=== PATIENT | male | born 1965 | race Caucasian/White ===

== ENCOUNTER 2018-01-25 18:12 | Emergency (ER) | payer OTHER, SELFPAY ==
[2018-01-25 18:14] VITALS: BP 166/82; PULSE 114; RESP 18; TEMP 36.4; O2SAT 98; BMI 26.4
--- NOTE | 2018-01-25 18:42 | ED.VISSUMM ---
- ER Visit Summary Date of Service: 01/25/18 Chief Complaint: [Dog bite left hand] History of Present Illness: The patient is a 52 M [presents the emergency department with a dog bite sustained 2 days ago. Patient states that he got between his 2 dogs that were fighting. Patient is left-hand dominant. Patient states that yesterday he had ice on his hand and the swelling stayed down but today noticed increased swelling as he can keep ice on his left hand very much throughout the day. Patient denies any fever. Patient unsure of his last tetanus. His dogs are immunized.] Physical Examination: [Left hand-patient has a puncture wound to the dorsum of the left hand over the proximal portion of the hand overlying the area of the extensor tendon to the index finger patient also has a puncture wound in the webspace between the thumb and index finger. Patient has normal extension and flexion of all digits. He is neurovascular intact. No cellulitis noted. Patient does have soft tissue swelling and edema of the hand.] Test Results: [None indicated] Emergency Department Course and Treatment: [Patient had clean dressing applied and he was started on Cipro and clindamycin given that he is pen allergic.] Treatment Plan: [Patient will be referred to Dr. Baugh for follow-up in 3-5 days. Patient understands that we will not be suturing the wounds as they are 2 days old and small.] Disposition: [Discharged home in stable condition. Patient advised to return if increasing pain, redness, swelling, or condition should worsen in any way.] Impression: [Dog bite left hand] This note was generated with [employer] dictation software. It may contain incorrect words, spelling, and punctuation that were not noted in review of the chart prior to signing ED Disposition - Plan for ED Patient: Chief Complaint: Bite Referrals: Francisco Prasad MD [Primary Care Provider] -
--- NOTE | 2018-01-25 18:45 | ED.DCSUM_ITS ---
- ER Visit Summary Date of Service: 01/25/18 Chief Complaint: [Dog bite left hand] History of Present Illness: The patient is a 52 M [presents the emergency department with a dog bite sustained 2 days ago. Patient states that he got between his 2 dogs that were fighting. Patient is left-hand dominant. Patient states that yesterday he had ice on his hand and the swelling stayed down but today noticed increased swelling as he can keep ice on his left hand very much throughout the day. Patient denies any fever. Patient unsure of his last tetanus. His dogs are immunized.] Physical Examination: [Left hand-patient has a puncture wound to the dorsum of the left hand over the proximal portion of the hand overlying the area of the extensor tendon to the index finger patient also has a puncture wound in the webspace between the thumb and index finger. Patient has normal extension and flexion of all digits. He is neurovascular intact. No cellulitis noted. Patient does have soft tissue swelling and edema of the hand.] Test Results: [None indicated] Emergency Department Course and Treatment: [Patient had clean dressing applied and he was started on Cipro and clindamycin given that he is pen allergic.] Treatment Plan: [Patient will be referred to Dr. Baugh for follow-up in 3- 5 days. Patient understands that we will not be suturing the wounds as they are 2 days old and small.] Disposition: [Discharged home in stable condition. Patient advised to return if increasing pain, redness, swelling, or condition should worsen in any way.] Impression: [Dog bite left hand] This note was generated with [employer] dictation software. It may contain incorrect words, spelling, and punctuation that were not noted in review of the chart prior to signing ED Disposition - Plan for ED Patient: Chief Complaint: Bite Referrals: Francisco Prasad MD [Primary Care Provider] -
--- NOTE | 2018-01-25 18:45 | ED.DEP ---
ED Disposition - Plan for ED Patient: Chief Complaint: Bite Instructions: ED Bite Dog Prescriptions: Ciprofloxacin [Cipro] 500 mg PO BID #20 tab Clindamycin HCl [Cleocin] 300 mg PO Q6H #40 cap Referrals: Francisco Prasad MD [Primary Care Provider] - Susi Baugh DO [STAFF PHYSICIAN] - 3-5 Days
[2018-01-25] MEDS: Ciprofloxacin 500 MG Tablet PO (18:50)
[2018-01-25] MEDS: Clindamycin HCl 150 MG Capsule 300 MG PO (18:50)
[2018-01-25] MEDS: Diphth,Pertuss(Acell),Tet Vac 0.5 ML Vial IM (18:51)
== END 2018-01-25 19:25 | disposition home or self-care (01) ==
LOC: ED 19:06
PROVIDERS: Emergency Provider Emergency Medicine; Family Provider Physician Assistant; PCP Physician Assistant
DX: S61.432A Puncture wound without foreign body of left hand, initial encounter (principal); W54.0XXA Bitten by dog, initial encounter; Y93.89 Activity, other specified; Y92.9 Unspecified place or not applicable
CPT/HCPCS: 90715; 99282; A4216

== ENCOUNTER 2018-02-05 11:30 | Outpatient (RCR) | payer OTHER, SELFPAY ==
--- NOTE | 2018-01-30 12:01 | HP.OTEVAL ---
Patient's Visit Information LEAH MEDEL is a 52 year old M, referred to Occupational Therapy by Susi Baugh DO, with a diagnosis of left handed dog bit /infection. Date of Evaluation: 01/30/18 Occupational Therapist: WAI Gutierrez/Tray, CHT - Subjective Subjective: Pt attends OT session this date with dx of dog bite of left hand- pt states a week ago he was bit by his dog- states his hand is getting better but continues to struggle with pain, edema and limited ROM. 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 Pt was ed. on signs and symptoms of infection, as well as cleaning his wound- keeping it open to drain. pt will be seen 1-2xweek for 4 weeks to ensure pt returns to PLOF. Rehabilitation Potential: Excellent - Anticipated Interventions Anticipated Interventions: A/AAROM/PROM, Edema Control, Scar Care, Wound Care, Modalities, Orthoses, Fine Motor Coord/Silvino, Home Program - Visit Plan Frequency: 1-2x /Week Duration: 4 Weeks TEXT: Thank you for the opportunity to evaluate your patient. For Medicare and Medicare HMO plans, please review the plan of care and approve it. It will need to be FAXED BACK to us at [phone] for Medicare purposes. Please let me know if there are questions or concerns regarding this plan of care. Physician Signature: Date:
--- NOTE | 2018-02-06 10:35 | HP.OT.NRP ---
HP - Discharge Summary - Patient Information LEAH MEDEL was seen in my office for initial evaluation on 01/30/18. The following Plan of Care was established for this patient: Initial Frequency: 1-2x /Week Initial Duration: 4 Weeks Plan: pt to see 02-06-18 - Anticipated Interventions Anticipated Interventions: A/AAROM/PROM, Edema Control, Scar Care, Wound Care, Modalities, Orthoses, Fine Motor Coord/Silvino, Home Program This patient was last seen in our office 02/05/18. Pertinent comments regarding their Occupational therapy will appear below: pt let therapist know he went to the and she has released him from therapy. PT D/C meeting functional goals. At this point I will be discontinuing this patient from occupational therapy. I would be happy to see this patient again in the future if found appropriate by the physician. Thank you! Mariana Dorantes, OTR/L, CHT
== END 2018-02-05 19:00 | disposition home or self-care (01) ==
LOC: OT 11:30
PROVIDERS: Family Provider Physician Assistant; PCP Physician Assistant; Visit Provider Orthopaedic Surgery
DX: S61.452D Open bite of left hand, subsequent encounter (principal); W54.0XXD Bitten by dog, subsequent encounter
CPT/HCPCS: 97166; 97530

== ENCOUNTER → 2024-12-01 | Outpatient (CLI) | payer OTHER, SELFPAY ==
[2024-12-01 10:23] LABS: Absolute Lymphocyte Count 2.76 X10^3/uL (0.83-4.51); Absolute Neutrophil Count 3.9 X10^3/uL (2.0-7.7); Basophil# 0.06 X10^3/uL; Basophil% 0.8 % (0-1); Eosinophil# 0.49 X10^3/uL; Eosinophils% 6.3 % (0-5); Hematocrit 46.5 % (40-54); Hemoglobin 15.7 g/dL (13.0-16.5); Lymphocyte # 2.76 X10^3/ul (0.83-4.51); Lymphocyte % 35.5 % (19-41); Mean Corp Hgb Conc 33.8 g/dL (32-36); Mean Corpuscular Hgb 30.8 pg (27.0-32.0); Mean Corpuscular Volume 91.2 fL (80-94); Mean Platelet Vol. 11.4 fl (6.2-12.0); Monocyte# 0.56 X10^3/uL; Monocyte% 7.2 % (0-10); NRBC Flagged by Analyzer 0 % (0-5); Neutrophil # 3.87 X10^3/uL (2.7-7.7); Neutrophil % 49.8 % (47-70); Platelet Count 212 K/mm3 (150-450); RBC Distribution Width CV 12.7 % (11.6-14.6); RBC Distribution Width SD 42.4 fl (35.1-43.9); White Blood Count 7.8 K/mm3 (4.4-11.0)
[2024-12-01 11:16] LABS: ALB/GLOB Ratio 1.7 RATIO (0.9-2.4); AST(SGOT) 31 U/L (<=37); Alanine Aminotransfer ALT/SGPT 44 U/L (<=46); Albumin, Serum 4.4 g/dL (3.4-4.8); Alkaline Phosphatase 71 U/L (40-129); Anion Gap 10 (5-15); BUN 15 mg/dL (4-19); BUN/Creat Ratio 13.1 RATIO (10-20); Calcium,Total 9.5 mg/dL (7.6-11.0); Carbon Dioxide 23.7 mmol/L (21.0-32.0); Chloride 106 mmol/L (98-108); Cholesterol 205 mg/dL (<=200); Creatinine, Serum 1.11 mg/dL (0.70-1.20); EST Glomerular Filtration Rate 76 (>60); Globulin 2.6 g/dL (2.2-4.2); Glucose 111 mg/dL (70-99); High Density Lipoprotein 37 mg/dL; Low Density Lipoprotein Calc. 99 mg/dL; PSA,Total - Annual Screen 1.13 ng/mL (0.02-4.00); Sodium Level 139 mmol/L (133-145); Total Bilirubin 0.48 mg/dL (0.00-1.30); Triglycerides 345 mg/dL; Very Low Density Lipoprotein 69 mg/dL (5-40); cholesterol:hdl ratio screen 5.56
== END | disposition home or self-care (01) ==
PROVIDERS: PCP Family Medicine; Referring Provider Family Medicine; Visit Provider Family Medicine
DX: Z13.220 Encounter for screening for lipoid disorders (principal); R03.0 Elevated blood-pressure reading, without diagnosis of hypertension; Z13.1 Encounter for screening for diabetes mellitus; Z12.5 Encounter for screening for malignant neoplasm of prostate
CPT/HCPCS: 36415; 80053; 80061; 84153; 85025; G0103

== ENCOUNTER 2024-12-25 11:29 | Day surgery (SDC) | payer OTHER, SELFPAY ==
[2024-12-25] VITALS (9 sets, daily range): BP systolic 116–142; BP diastolic 75–97; PULSE 75–99; RESP 16; TEMP 36.5–37.1; O2SAT 92–100; BMI 29.0
[2024-12-25] MEDS: Lactated Ringers 1,000 ML 15 ML IV (11:57)
--- NOTE | 2024-12-25 12:21 | PCM.PRE.AN2 ---
ASA Classification* ASA Classification ASA Classification: 2 Assessment & Plan Anesthesia* Anesthesia Assessment Anesthesia Assessment: Discussed sedation and/or anesthesia options, risks, benefits, and alternatives with patient/parents/legal guardian/POA. Questions invited. The patient/parents/legal guardian/POA seems to understand and agrees to proceed with anesthesia plan. Reviewed the physical assessment, medical history, allergy history and patient home medications list prior to surgery/procedure/anesthetic and documented any changes. Performed airway and anesthesia risk assessments. Anesthesia Type Anesthesia Type: MAC History Source History Obtained from:: Patient and Chart Anesthesia Focused Assessment* Temperature: 97.7 F Pulse Rate: 99 Blood Pressure: 142/97 Respiratory Rate: 16 Pulse Ox: 100 Oxygen Delivery Method: Room Air Airway Assessment Mouth opens: >3 cm Mallampati Score: IV Teeth Condition: Missing (Missing 1 tooth.) Neck Range of motion (ROM): Limited ROM Focused Labs Anesthesia Preop lab: CBC WBC 7.8 K/mm3 (4.4-11.0) 12/01/24 08:57 12/01/24 RBC 5.10 M/mm3 (4.6-6.2) 12/01/24 08:57 12/01/24 Hgb 15.7 g/dL (13.0-16.5) 12/01/24 08:57 12/01/24 Hct 46.5 % (40-54) 12/01/24 08:57 12/01/24 Plt Count 212 K/mm3 (150-450) 12/01/24 08:57 12/01/24 CHEMISTRY Potassium 4.0 mmol/L (3.3-5.1) 12/01/24 08:57 12/01/24 Sodium 139 mmol/L (133-145) 12/01/24 08:57 12/01/24 BUN 15 mg/dL (4-19) 12/01/24 08:57 12/01/24 Creatinine 1.11 mg/dL (0.70-1.20) 12/01/24 08:57 12/01/24 Glucose 111 mg/dL (70-99) H 12/01/24 08:57 12/01/24 COAG Pre-Assessment Diagnosis/Proposed Procedure Planned Operative Procedure(s): CSCOPE Anesthesia History Anesthesia History - director of vocational guidance: Anesthesia History - director of vocational guidance Hx Hospitalization No 12/23/24 11:01 Any Problems With Anesthesia No 12/23/24 11:01 Cholinesterase deficiency No 12/23/24 11:01 You/Your Family Experience No 12/23/24 11:01 fever (hyperthermia) with Relationship Recent Exposure to Contagious No 12/25/24 11:50 Disease Does patient have nerve No 12/23/24 11:01 stimulator Patient instructed to have device shut off --Does patient have Pacemaker No 12/25/24 11:50 or ICD? When Was Last Pacemaker Check QUESTION #4 FULL TEXT: You/Your Family Experience fever (hyperthermia) with Anesthesia Last Oral Intake Last Oral intake: Last Oral Intake NPO since 22:00 12/25/24 11:50 Meds taken in AM with sips of No 12/25/24 11:50 water? Meds patient instructed to take am of surgery PONV PONV - director of vocational guidance: PONV - director of vocational guidance Female No 12/23/24 11:01 HX of Motion Sickness No 12/23/24 11:01 HX of N/V After Surgery No 12/23/24 11:01 Non-Smoker Yes 12/23/24 11:01 Duration of Surgery greater No 12/23/24 11:01 than 60 minutes Number of Risk Factors 1 12/23/24 11:01 PONV Score Low Risk 12/23/24 11:01 Height & Weight Height & Weight: Anesthesia: Height & Weight Height 6 ft 1 in 12/25/24 11:50 Weight: 100 kg 12/25/24 11:50 Body Mass Index (BMI) 29.0 12/25/24 11:50 Respiratory Assessment Respiratory Assessment - director of vocational guidance: Respiratory Tract Infection Hx - director of vocational guidance Hx Respiratory Tract Infection No 12/23/24 11:01 STOP Sleep Apnea STOP Sleep Apnea - director of vocational guidance: STOP Sleep Apnea - director of vocational guidance Hx Hypertension No 12/23/24 11:01 Hx Sleep Apnea No 12/23/24 11:01 CPAP BIPAP Do you snore loudly (louder No 12/23/24 11:01 than talking or can be heard Do you often feel tired/ No 12/23/24 11:01 fatigued/ sleepy during daytime? Has anyone observed you stop No 12/23/24 11:01 breathing during sleep? STOP Results Negative 12/23/24 11:01 QUESTION #5 FULL TEXT : Do you snore loudly (louder than talking or can be heard through closed doors)? Tobacco Use History Tobacco Use History - director of vocational guidance: Tobacco Use History - director of vocational guidance Tobacco Use Smoking Status Never smoker 12/23/24 11:01 Hx Tobacco Use No 12/23/24 11:01 Years Smoking Packs Smoked per Day Smoking Cessation Date was within the last 15 years Hx Smoking Cessation Date Hx Smoking Cessation Counseling Hematologic Medial History Hematologic Hx - director of vocational guidance: Hematologic Medical Hx - rn interventional Hx of Blood Transfusion No 12/23/24 11:01 Hx of Transfusion in last 3 No 12/23/24 11:01 Months Date of Last Transfusion (if within last 3 months) Ever experience any problems No 12/23/24 11:01 with transfusion(s)? Specify any problems Hx of Preganancy in last 3 N/A 12/23/24 11:01 Months Nurse Filling Out Transfusion NBUCHER 12/23/24 11:01 & Questions: Date: 12/23/24 12/23/24 11:01 Time: 11:01 12/23/24 11:01 Patient unable to answer at this time (ie. confused, unrespo /Reproduction History /Reproductive History - director of vocational guidance: /Reproductive Hx- director of vocational guidance Hx Now No 12/23/24 11:01 Gestational Age (in weeks): EDC: Hx Hx Para Hx Section SAB No 12/23/24 11:01 Active Medications Active Medications: Current Medications Generic Name Dose Route Start Last Admin Trade Name Freq PRN Reason Stop Dose Admin Lactated Ringer's 1,000 mls @ 15 mls/hr 12/25/24 11:45 12/25/24 11:57 IV 15 mls/hr .Q48H KALI Administration PFSH Medical History Wears glasses Arthritis Gastric reflux Heartburn Leg cramps Home Medications ?Medication ?Instructions ?Recorded ?Last Taken ?Type omeprazole 20 mg capsule,delayed 20 mg PO DAILY PRN GERD 01/25/18 12/24/24 History release Allergy/AdvReac Type Severity Reaction Status Date / Time Penicillins Allergy Rash Verified 12/25/24 11:49 Surgical History History of wisdom tooth extraction History of colonoscopy Social History Smoking Status: Never smoker Review of Systems (Anesthesia) ROS Narrative System reviewed and no additional complaints, except as documented.
--- NOTE | 2024-12-25 12:42 | H&P.OPEN ---
HPI - General HPI Narrative LEAH MEDEL, is a 59 M who presents for screening colonoscopy. His last colonoscopy was about 7 years ago. He had 2 polyps removed. He is here for surveillance. He denies abdominal pain or blood in the stool. No family history of colon cancer. [facility] Medical History Wears glasses Arthritis Gastric reflux Heartburn Leg cramps Home Medications ?Medication ?Instructions ?Recorded ?Last Taken ?Type omeprazole 20 mg capsule,delayed 20 mg PO DAILY PRN GERD 01/25/18 12/24/24 History release Allergy/AdvReac Type Severity Reaction Status Date / Time Penicillins Allergy Rash Verified 12/25/24 11:49 Surgical History History of wisdom tooth extraction History of colonoscopy Social History Smoking Status: Never smoker Past Medical/Surgical History Planned Operation Planned Operative Procedure(s): CSCOPE Previous Hospitalizations/Surgeries HX Hospitalizations: No Any Problems With Anesthesia: No You/Your Family Experience Fever (Hyperthermia) With Anes: No Cholinesterase deficiency: No Cardiovascular Hx Hypertension: No Respiratory Hx Sleep Apnea: No Hx Respiratory Tract Infection/Cold (presently): No Do You Snore Loudly (louder than talking or can be heard): No Do You Often Feel Tired/ Fatigued/ Sleepy Dring Daytime?: No Has Anyone Observed You Stop Breathing During Sleep?: No Result (for STOP score): Negative Smoking Status: Never smoker Neurological Does patient have nerve stimulator: No Reproduction : No Miscellaneous Recent Exposure to Contagious Disease: No Allergies Penicillins Allergy (Verified 12/25/24 11:49) Rash Discharge Is Pt Admitted From a [facility] or a [facility]: No After D/C, Where Do you Plan to Go: Return Home Vital Signs Vital Signs Vital Signs: 12/25/24 11:50 12/25/24 11:50 12/25/24 12:29 Temperature 97.7 F L 97.7 F L Temperature Source Temporal Pulse Rate 99 99 Respiratory Rate 16 16 Respiratory Pattern Normal Blood Pressure 142/97 H 142/97 H Blood Pressure Mean 112 Blood Pressure Source Monitor Blood Pressure Position Sitting Blood Pressure Location Left Arm Pulse Ox 100 100 Oxygen Delivery Method Room Air Room Air Weight Weight: 220 lb 7.396 oz Body Mass Index (BMI) 29.0 Physical Exam Const alert and oriented x3 HEENT normocephalic Eyes PERRL Resp normal respiratory effort and normal air movement Cardio regular rate and regular rhythm GI soft to palpation, non-tender and non-distended Extremity normal to inspection Assessment & Plan Assessment/Plan (1) History of colon polyps: PLAN: I explained endoscopy in detail to the patient. I explained the risks including but not limited to stroke or heart attack with anesthesia, perforation of the GI tract, bleeding, infection. I explained that any of these could necessitate further emergency surgery. The patient understands and all questions were answered sufficiently. The patient wishes to proceed with procedure. Harshil Mendoza MD Pager: [facility] [address] [place] [address], [address] [place] [address] Office: Surgery Risks - Colonoscopy Risks Include but are not Limited To: Risks include but are not limited to: Bleeding, perforation requiring further surgery, inability to complete colonoscopy requiring barium enema.
--- NOTE | 2024-12-25 13:07 | OP.CCLET_ITS ---
12/25/2024 Rashida Morton Md Re : Colonoscopy procedure for Eyad Marina Dear Selene This procedure was performed on Wednesday, December 25, 2024. My impressions and recommendations are as follows: Impressions : - The entire examined colon is normal on direct and retroflexion views. - No specimens collected. Recommendations : - Discharge patient to home. - Resume previous diet. - Continue present medications. - Repeat colonoscopy in 10 years for screening purposes. My findings are described in the full procedure note, which is enclosed. If I can be of further assistance, please feel free to contact me at Doctor phone number(s): , Work: . Sincerely, Harshil Mendoza MD 12/25/2024 1:06:49 PM This report has been signed electronically.
--- NOTE | 2024-12-25 13:07 | OP.COLON_ITS ---
Patient Name: Eyad Marina Procedure Date: 12/25/2024 12:42 PM Date of : 1965 Age: 59 Procedure: Colonoscopy Indications: High risk colon cancer surveillance: Personal history of colonic polyps Providers: Harshil Mendoza MD Referring MD: Rashida Morton Md Medicines: Propofol per Anesthesia Patient Profile: This is a 59 year old male. Refer to note in patient chart for documentation of history and physical. Last Colonoscopy: 5 years ago. Complications: No immediate complications. Procedure: Pre-Anesthesia Assessment: - Prior to the procedure, a History and Physical was performed, and patient medications and allergies were reviewed. The patient's tolerance of previous anesthesia was also reviewed. The risks and benefits of the procedure and the sedation options and risks were discussed with the patient. All questions were answered, and informed consent was obtained. Prior Anticoagulants: The patient has taken no anticoagulant or antiplatelet agents. After reviewing the risks and benefits, the patient was deemed in satisfactory condition to undergo the procedure. After I obtained informed consent, the scope was passed under direct vision. Throughout the procedure, the patient's blood pressure, pulse, and oxygen saturations were monitored continuously. The pediatric colonoscope was introduced through the anus and advanced to the cecum, identified by appendiceal orifice and ileocecal valve. The colonoscopy was performed without difficulty. The patient tolerated the procedure well. The quality of the bowel preparation was good. The ileocecal valve, appendiceal orifice, and rectum were photographed. Scope In: 12:52:49 PM Scope Withdrawal Time 0 hours 6 minutes 24 seconds Scope Out: 1:04:43 PM Total Procedure Duration Time 0 hours 11 minutes 54 seconds Findings: The entire examined colon appeared normal on direct and retroflexion views. Impression: - The entire examined colon is normal on direct and retroflexion views. - No specimens collected. Recommendation: - Discharge patient to home. - Resume previous diet. - Continue present medications. - Repeat colonoscopy in 10 years for screening purposes. Procedure Code(s): --- Professional --- 71884, Colonoscopy, flexible; diagnostic, including collection of specimen(s) by brushing or washing, when performed (separate procedure) Diagnosis Code(s): --- Professional --- Z86.010, Personal history of colonic polyps CPT copyright 2021 [employer]. All rights reserved. The codes documented in this report are preliminary and upon broodmare foreman review may be revised to meet current compliance requirements. Harshil Mendoza MD 12/25/2024 1:06:49 PM This report has been signed electronically. Number of Addenda: 0 Note Initiated On: 12/25/2024 12:42 PM
--- NOTE | 2024-12-25 13:15 | PCM.POST.ANE ---
Anesthesia: Postop Eval I Current Vital Signs Temperature: 98.7 F Pulse Rate: 82 Blood Pressure: 117/78 Respiratory Rate: 16 Pulse Ox: 93 Oxygen Delivery Method: Room Air Assessment Airway patent: Yes Spontaneous unlabored respirations: Yes Mental status: Asleep nausea: No Vomiting: No Anesthesia Complication: No Fluid Hydration Crystalloid volume administer (ml): 500 Total IV fluid infused: 500 Progress Note Anesthesia document: Postop Eval 1 completed: Yes
--- NOTE | 2024-12-25 16:36 | PCM.POSTANE2 ---
Anesthesia Postop Eval I Sum Postop Eval Completion status Anesthesia document: Postop Eval 1 completed: Yes Anesthesia Postop Eval I Summary Anesthesia Postop Eval I Summary: Anesthesia Postop Eval I: Assessment Summary Airway patent Yes 12/25/24 13:15 [email or web address] Spontaneous unlabored Yes 12/25/24 13:15 [email or web address] respirations Mental status Asleep 12/25/24 13:15 [email or web address] nausea No 12/25/24 13:15 [email or web address] Vomiting No 12/25/24 13:15 [email or web address] Anesthesia Postop Eval I: Fluid Summary Crystalloid volume administer 500 12/25/24 13:15 [email or web address] (ml) Colloids volume administered ( ml) Blood Product volume administered (ml) Total IV fluid infused 500 12/25/24 13:15 [email or web address] Anesthesia Postop Eval I: Summary Notes Anesthesia Complication No 12/25/24 13:15 [email or web address] Anesthesia Complication Comment: Post-operative progress note Anesthesia: Postop Eval II Evaluation Mental status: Awake Pain Level: 0 nausea: No Vomiting: No
== END 2024-12-25 14:27 | disposition home or self-care (01) ==
LOC: EN 11:31 → AC 11:33
PROVIDERS: PCP Family Medicine; Referring Provider Family Medicine; Visit Provider Surgery
PROC: 0DJD8ZZ Inspection of Lower Intestinal Tract, Via Natural or Artificial Opening Endoscopic (ICD-10-PCS; CPT 45378; principal; 2024-12-25 12:25)
DX: Z12.11 Encounter for screening for malignant neoplasm of colon (principal); Z86.0100 Personal history of colon polyps, unspecified; Z79.899 Other long term (current) drug therapy
CPT/HCPCS: 45378; J2405